=== PATIENT | female | born 1955 | race Caucasian/White ===

== ENCOUNTER → 2017-07-01 | Outpatient (CLI) | payer OTHER ==
--- NOTE | 2017-07-02 15:17 | MAMMOGRAPHY REPORT ---
BILATERAL DIGITAL SCREENING MAMMOGRAM TOMOSYNTHESIS WITH CAD: 07/01/2017 CLINICAL HISTORY: Routine screening. TECHNIQUE: Breast tomosynthesis in addition to standard 2D mammography was performed. Current study was also evaluated with a Computer Aided Detection (CAD) system. COMPARISON: Comparison is made to exams dated: 05/31/2016 mammogram, 02/23/2015 ultrasound, 02/23/2015 mammogram, 02/11/2015 mammogram - [facility], and 03/19/2011 mammogram. BREAST COMPOSITION: There are scattered areas of fibroglandular density in both breasts. FINDINGS: The parenchymal pattern is unchanged. No developing mass, architectural distortion or clus ter of suspicious microcalcifications is seen in either breast. IMPRESSION: ACR BI-RADS CATEGORY 2: BENIGN There is no mammographic evidence of malignancy. A 1 year screening mammogram is recommended. The pa tient will receive written notification of the results. Approximately 10% of breast cancers are not detected with mammography. A negative mammographic report should not delay biopsy if a clinically suggestive mass is present. Hina Pedroza M.D. ay/:07/01/2017 17:00:38 Delinquent Tax Collector: Pollo GARCIA(R)(Martha), [facility] letter sent: Normal 1/2 BI-RADS Code: ACR BI-RADS Category 2: Benign
== END | disposition home or self-care (01) ==
LOC: C.MAMM 11:12
PROVIDERS: ATTEND Internal Medicine
DX: Z12.31 Encounter for screening mammogram for malignant neoplasm of breast (principal)

== ENCOUNTER 2020-09-30 01:35 | Observation (INO) ==
--- NOTE | 2020-09-30 01:54 | Emergency Department Note ---
History of Present Illness General Chief Complaint: Chest Pain Stated Complaint: CHEST PAIN/NOT FEELING WELL Time Seen by Provider: 09/30/20 01:38 Source: patient, EMS, RN notes reviewed and old records reviewed Mode of arrival: EMS Limitations: no limitations History of Present Illness Provider Complaint: chest pain Onset (ago): hour(s) 1 Duration: now resolved Onset: during rest Pain Location: left chest Pain Radiation: back Severity: mild Current Pain Intensity: 0 Quality: + aching Relieved By: + movement Exacerbated By: + supine Context: no recent immobilization, no trauma/injury, no new medications and no history of DVT/PE Associated symptoms: + nausea; no diaphoresis and no fever Treatments prior to arrival: aspirin (324) This 65-year-old female who reports to the emergency department after waking up this morning in addition to the chest pain the patient is also complaining of nausea as well as dizziness. The patient reports she does not take any medications. She reports she had an abnormal EKG as reported by her PCP 2 years ago. She had an echocardiogram at that time which was found to be normal. She denies any fevers or chills. Home Medications Medication Instructions Recorded Confirmed Type No Known Home Medications 09/30/20 09/30/20 History lisinopril 5 mg PO DAILY #30 tab 09/30/20 10/03/20 Rx Allergies Allergy/AdvReac Type Severity Reaction Status Date / Time No Known Allergies Allergy Verified 09/30/20 02:03 Past Med/Surg History Medical History Back ache Breast density Chronic obstructive pulmonary disease Dizzy spells EKG, abnormal History of postmenopausal bleeding Migraine Postmenopausal atrophic vaginitis Reactive hypertension Tremor Tricuspid regurgitation Urinary tract infection Surgical History H/O oral surgery Previous back surgery L5-S1 herniated disc repair. early 80s S/P skin biopsy BCC Left cheek Family History Father Coronary heart disease Hyperlipidemia Hypertension Myocardial infarction Brother Diabetes Mother Myocardial infarction Denies family history of Ovarian cancer Prostate cancer Breast cancer Colorectal cancer Social History Smoking Status: Never smoker Second Hand Exposure: No; Hx Alcohol Use: No Hx Substance Use: No Preferred Language: Armenian Communication Ability: Effective Visual Impairment: No Limitations Hearing Ability: Normal Hogshead Opener Required: No Beliefs That Will Affect Care: None marital status: Current Living Situation: Spouse current occupational status: retired 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 Feels Safe at Home: Yes Childhood Exposure to Second-Hand Smoke: No Dental Care, Regularly: Yes Physical Activity Frequency: Daily Physical Activity Frequency Comment: walk, hikie, bike Seatbelt Use: always Sunscreen Use: Yes Assistive Devices: Glasses Review of Systems A total of 10 systems reviewed and were otherwise negative Physical Exam Vital Signs Vital Signs - 24 hr 09/30/20 01:43 09/30/20 01:44 09/30/20 02:10 Temperature 37.0 C Temperature Source Oral Pulse Rate 100 H 87 Pulse Rate [Apical] 86 Pulse Rate from SpO2 Sensor 86 Respiratory Rate 14 13 Respiratory Depth Normal Normal Blood Pressure 192/109 H 169/103 H Blood Pressure [Right Arm] 169/103 H Blood Pressure Mean 136 125 Blood Pressure Mean [Right Arm] 125 Pulse Oximetry 97 97 Oxygen Delivery Method Room Air Room Air Room Air Sepsis Recent Fever Within 48 Hours No Sepsis New/Unexplained Change in Mental Status N/A Sepsis Action Taken by Nursing No Action Required 09/30/20 02:30 09/30/20 03:00 09/30/20 03:30 Temperature Temperature Source Pulse Rate 95 H 92 H 86 Pulse Rate [Apical] Pulse Rate from SpO2 Sensor Respiratory Rate 21 17 14 Respiratory Depth Blood Pressure 186/106 H 188/90 H 155/99 H Blood Pressure [Right Arm] Blood Pressure Mean 132 122 117 Blood Pressure Mean [Right Arm] Pulse Oximetry 97 97 96 Oxygen Delivery Method Sepsis Recent Fever Within 48 Hours Sepsis New/Unexplained Change in Mental Status Sepsis Action Taken by Nursing VITAL SIGNS - Vital signs and nursing notes were reviewed. GENERAL - 65-year-old female appearing stated age who is in no acute distress. Extremely anxious. Communicates well with provider and answers questions appropriately. SKIN - Without rashes. HEAD - NC/AT. EYES - PERRL with EOMI bilaterally. Sclera anicteric. Palpebral conjunctiva pink and moist with no injection noted. EARS - No deformities of external structures noted on gross examination bilaterally. No pain elicited with palpation of the tragus bilaterally. External auditory canals without discharge or otorrhea. Tympanic membranes pearly lugo without retraction or bulging. No fluid or purulent material visualized behind the TM. Handle of malleus, umbo, cone of light, pars tensa/flaccid all easily visualized. NOSE - Midline and without cyanosis. No epistaxis or purulent drainage noted. Septum midline without deviation or septal hematoma noted. MOUTH/OROPHARYNX - Without perioral cyanosis. Buccal mucosa pink and moist and without leukoplakia. Tongue midline with equal elevation of palate bilaterally. No tonsillar hypertrophy, erythema, or exudates noted. dentition noted. NECK - Neck with FROM. Supple to palpation. lymphadenopathy noted. No nuchal rigidity. LUNGS - Chest wall symmetric without accessory muscle use, intercostals retractions, or central cyanosis. Normal vesicular breath sounds CTA B/L. No wheezes, rales, or rhonchi appreciated. CARDIAC - RRR with S1/S2. No murmur, rubs, or gallops appreciated. ABDOMEN - Abdominal contour without pulsations or visible masses. BS normoactive all four quadrants. No tenderness, palpable masses, hep atosplenomegaly, or ascites noted. EXTREMITIES - No clubbing or peripheral cyanosis. No pretibial edema present. +3/5 radial, posterior tibial, and dorsalis pedis pulses palpated throughout. +5/5 strength noted in UE/LE bilaterally. NEUROLOGIC - Cranial nerves II through XII grossly intact. Sensory intact to light touch throughout. Patellar reflexes +2/4. PSYCH - A&Ox3 and cooperates fully with examiner. Pt is very pleasant and interacts well with examiner. Course Administered Medications Discontinued Medications Acetaminophen (Acetaminophen 325 Mg Tab) 650 mg PO Q4H PRN PRN Reason: Pain or Fever Stop: 10/30/20 05:37 Last Admin: 09/30/20 13:25 Dose: 650 mg Documented by: [id number] Aspirin (Aspirin Chew 324 Mg) 324 mg PO NOW STA Stop: 09/30/20 03:57 Last Admin: 09/30/20 04:00 Dose: Not Given Documented by: [id number] Fentanyl Citrate (Fentanyl Citrate 100 Mcg/2 Ml Vial) Confirm Administered Dose 100 mcg .ROUTE .STK-MED ONE Stop: 09/30/20 16:22 Last Admin: 09/30/20 17:39 Dose: Not Given Documented by: [id number] Heparin Sodium (Porcine) (Heparin (Porcine) 1000 Unit/Ml 10 Ml (Powerhouse Mechanic Apprentice Use Only)) Confirm Administered Dose 10,000 units .ROUTE .[facility] ONE Stop: 09/30/20 16:22 Last Admin: 09/30/20 17:39 Dose: Not Given Documented by: [id number] Heparin Sodium/Sodium Chloride (Heparin In Nss Infusion 1000 Unit/500 Ml (2 U/Ml) Bag) Confirm Administered Dose 3,000 units IV .[facility] Stop: 09/30/20 16:22 Last Admin: 09/30/20 17:39 Dose: Not Given Documented by: [id number] Sodium Chloride (Nss 1000ml) 1,000 mls @ 150 mls/hr IV .Q6H40M [facility] Stop: 09/30/20 22:00 Last Admin: 09/30/20 17:42 Dose: Not Given Documented by: [id number] Lisinopril (Lisinopril 5 Mg Tab) 5 mg PO NOW ONE Stop: 09/30/20 03:37 Last Admin: 09/30/20 03:40 Dose: Not Given Documented by: [id number] Lisinopril (Lisinopril 5 Mg Tab) 5 mg PO [facility] Stop: 10/30/20 08:59 Last Admin: 10/01/20 08:29 Dose: Not Given Documented by: [id number] Admin: 09/30/20 10:16 Dose: Not Given Documented by: [id number] Midazolam HCl (Midazolam Hcl 1 Mg/Ml 2ml Vial) Confirm Administered Dose 2 mg .ROUTE .[facility] ONE Stop: 09/30/20 16:21 Last Admin: 09/30/20 17:38 Dose: Not Given Documented by: [id number] Nicardipine HCl (Nicardipine Hcl Inj 2.5 Mg/Ml 10 Ml Amp) Confirm Administered Dose 25 mg .ROUTE .[facility] ONE Stop: 09/30/20 16:22 Last Admin: 09/30/20 17:38 Dose: Not Given Documented by: [id number] Nitroglycerin (Nitroglycerin Sl 0.4 Mg/Tab Tab) 0.4 mg SL [facility] Stop: 09/30/20 03:57 Last Admin: 09/30/20 04:00 Dose: 0.4 mg Documented by: [id number] Nitroglycerin/Dextrose (Nitroglycerin/D5w 100mcg/Ml 20ml Syr) Confirm Administered Dose 2,000 mcg .ROUTE .[facility] ONE Stop: 09/30/20 16:22 Last Admin: 09/30/20 17:39 Dose: Not Given Documented by: [id number] Ondansetron HCl (Ondansetron Inj 2 Mg/Ml 2 Ml Vial) 4 mg IV Q6H PRN PRN Reason: Nausea Stop: 10/30/20 05:37 Last Admin: 09/30/20 13:25 Dose: 4 mg Documented by: [id number] Potassium Chloride (Potassium Chloride Crtab 20 Meq Tabcr) 40 meq PO NOW STA Stop: 09/30/20 02:16 Last Admin: 09/30/20 02:20 Dose: 40 meq Documented by: [id number] Potassium Chloride (Potassium Chloride Crtab 20 Meq Tabcr) 40 meq PO NOW STA Stop: 09/30/20 03:36 Last Admin: 09/30/20 03:40 Dose: 40 meq Documented by: [id number] Medical Decision Making Differential Diagnosis + fracture of rib, + pneumothorax, + stable angina, + unstable angina pectoris, + atypical chest pain, + st elevation myocardial infarction, + costochondritis, + chest pain, + biliary colic, + cardiac ischemia, + myocarditis, + pericarditis, + costochondritis, + pleurisy, + aortic dissection, + pulmonary embolism, + pneumonia, + musculoskeletal, + infections, + cholecystitis, + pancreatitis and + esophageal rupture Medical Records Attestation: I reviewed the patient's medical records. Home Medications Current Medication List: was personally reviewed by me Laboratory Data Attestation: I reviewed the patient's lab results. Result diagrams: 09/30/20 01:42 09/30/20 01:42 Labs: Lab Results 09/30/20 09/30/20 09/30/20 Range/Units 01:42 01:42 01:42 WBC 6.74 (4.8-10.8) K/uL RBC 4.41 (4.2-5.4) M/uL Hgb 13.2 (12.0-16.0) g/dL Hct 39.5 (37-47) % MCV 89.6 (80-100) fL MCH 29.9 (25-34) pg MCHC 33.4 (32-36) g/dL RDW Std Deviation 43.4 (36.4-46.3) fL RDW Coeff of Rosie 13.2 (11.5-14.5) % Plt Count 351 (130-400) K/uL MPV 10.3 (7.4-10.4) fL Immature Gran % (Auto) 0.1 % Neut % (Auto) 38.2 % Lymph % (Auto) 49.1 % [place] % (Auto) 10.5 % Eos % (Auto) 1.8 % Baso % (Auto) 0.3 % Neut # (Auto) 2.57 (1.4-6.5) K/uL Lymph # (Auto) 3.31 (1.2-3.4) K/uL [place] # (Auto) 0.71 H (0.11-0.59) K/uL Eos # (Auto) 0.12 (0-0.5) K/uL Baso # (Auto) 0.02 (0-0.2) K/uL Immature Gran # (Auto) 0.01 (0.00-0.02) K/uL PT 11.1 (9.0-12.0) Seconds INR 1.1 (0.9-1.1) APTT 28.2 (21.0-31.0) Seconds PTT Ratio 1.0 D-Dimer 310 (0-500) ug/L FEU Sodium 142 (136-145) mmol/L Potassium 3.2 L (3.5-5.1) mmol/L Chloride 111 H (98-107) mmol/L Carbon Dioxide 28 (21-32) mmol/L Anion Gap 3.0 (3-11) BUN 10 (7-18) mg/dl Creatinine 0.66 (0.6-1.2) mg/dl Est Cr Clr Drug Dosing 74.4 ml/min Est GFR ( Amer) 105.9 Est GFR (Non-Af Amer) 91.4 BUN/Creatinine Ratio 14.7 (10-20) Glucose 91 (70-99) mg/dl Calcium 8.8 (8.5-10.1) mg/dl Magnesium (1.8-2.4) mg/dl Total Bilirubin 0.5 (0.2-1) mg/dl AST 31 (15-37) U/L ALT 34 (12-78) U/L Alkaline Phosphatase 112 (45-117) U/L Total Creatine Kinase 106 (26-192) U/L CK-MB (CK-2) 2.0 (0.5-3.6) ng/ml CK/CKMB % Calc 1.9 (0-3.0) Troponin I < 0.015 (0-0.045) ng/ml NT-Pro-B Natriuret Pep (0-900) pg/ml Total Protein 7.7 (6.4-8.2) gm/dl Albumin 4.1 (3.4-5.0) gm/dl Globulin 3.6 (2.5-4.0) gm/dl Albumin/Globulin Ratio 1.1 (0.9-2) Lipase 86 (73-393) U/L COVID-19 Eval Order SARS-CoV-2, RNA, NAAT (NEGATIVE) 09/30/20 09/30/20 09/30/20 Range/Units 02:10 02:10 03:19 WBC (4.8-10.8) K/uL RBC (4.2-5.4) M/uL Hgb (12.0-16.0) g/dL Hct (37-47) % MCV (80-100) fL MCH (25-34) pg MCHC (32-36) g/dL RDW Std Deviation (36.4-46.3) fL RDW Coeff of Rosie (11.5-14.5) % Plt Count (130-400) K/uL MPV (7.4-10.4) fL Immature Gran % (Auto) % Neut % (Auto) % Lymph % (Auto) % [place] % (Auto) % Eos % (Auto) % Baso % (Auto) % Neut # (Auto) (1.4-6.5) K/uL Lymph # (Auto) (1.2-3.4) K/uL [place] # (Auto) (0.11-0.59) K/uL Eos # (Auto) (0-0.5) K/uL Baso # (Auto) (0-0.2) K/uL Immature Gran # (Auto) (0.00-0.02) K/uL PT (9.0-12.0) Seconds INR (0.9-1.1) APTT (21.0-31.0) Seconds PTT Ratio D-Dimer (0-500) ug/L FEU Sodium (136-145) mmol/L Potassium (3.5-5.1) mmol/L Chloride (98-107) mmol/L Carbon Dioxide (21-32) mmol/L Anion Gap (3-11) BUN (7-18) mg/dl Creatinine (0.6-1.2) mg/dl Est Cr Clr Drug Dosing ml/min Est GFR ( Amer) Est GFR (Non-Af Amer) BUN/Creatinine Ratio (10-20) Glucose (70-99) mg/dl Calcium (8.5-10.1) mg/dl Magnesium 1.9 (1.8-2.4) mg/dl Total Bilirubin (0.2-1) mg/dl AST (15-37) U/L ALT (12-78) U/L Alkaline Phosphatase (45-117) U/L Total Creatine Kinase (26-192) U/L CK-MB (CK-2) (0.5-3.6) ng/ml CK/CKMB % Calc (0-3.0) Troponin I 0.042 (0-0.045) ng/ml NT-Pro-B Natriuret Pep 93 (0-900) pg/ml Total Protein (6.4-8.2) gm/dl Albumin (3.4-5.0) gm/dl Globulin (2.5-4.0) gm/dl Albumin/Globulin Ratio (0.9-2) Lipase (73-393) U/L [facility], [facility], NAAT NEGATIVE (NEGATIVE) Imaging Data Chest x-ray: Attestation: I personally reviewed and interpreted this imaging study as follows: My impression: 1 view the chest was interpreted by me shows no evidence of pneumonia congestion or pneumothorax. ECG Data Attestation: I personally reviewed and interpreted this ECG as follows: Indication: chest pain Rate (beats per minute): 91 Rhythm: normal sinus Findings: + Q waves (Anterior) Comparison ECG Date: no prior available Additional Comments: Repeat EKG at 314 shows a normal sinus rhythm old anterior infarct no ST elevation or depression QTC is 459 ventricular rate is 88 it is unchanged from the previous EKG. MDM Narrative Patient was seen and evaluated as above in room A2. Review was performed of nursing notes and vital signs. I did review pertinent previous visits and patient history. After obtaining a thorough history and physical examination the above work up was performed. This 65-year-old female who presents to the emergency department complaining of chest pain. 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 The patient reports she had a echo test back in 2018. The patient has vague symptoms here tonight and reports that her symptoms started when she rolled over on her left side. She denies pain. Serial EKGs did not show any evidence of ischemia however due to the old anterior infarct I stressed the need for close follow-up with cardiology and really no strenuous activity until the follow-up. The patient's Covid test is negative. The patient's original troponin remained undetectable however repeat troponin showed an increase. Based on this along with the patient's hypertension I did discuss the case with the hospitalist service who did agree to meet the patient. In the meantime patient was given lisinopril here for her blood pressure. Her potassium was also repleted. An order was placed for continuous cardiac monitoring. The monitor shows a rate of 100 with Normal SInus rhythm. The patient was evaluated during a period of high volume and high acuity while the hospital was at overcapacity during the global COVID-19 pandemic, and that diagnosis was suspected/considered upon their initial presentation. Their evaluation, treatment and testing was consistent with current guidelines for patients who present with complaints or symptoms that may be related to COVID- 19. Impression & Plan Chest pain, Acute hypokalemia, Hypertension Discharge Plan Visit Data Chief Complaint: Chest Pain Stated Complaint: CHEST PAIN/NOT FEELING WELL ED Provider: Ravinder Adame Discharge Problem: Chest pain, Acute hypokalemia, Hypertension Patient Disposition: Admitted As Inpatient Condition: Good Discharge Instructions Interventions: ED Discharge Assessment Last Done: 09/30/20 05:14 Discharge Problem: Chest pain Qualifiers: Chest pain type: unspecified Qualified Code(s): R07.9 - Chest pain, unspecified Hypertension Qualifiers: Hypertension type: unspecified Qualified Code(s): I10 - Essential (primary) hypertension
[2020-09-30 02:00] LABS: Basophils # (auto) 0.02 K/uL (0-0.2); Basophils % (auto) 0.3 %; Eosinophils # (auto) 0.12 K/uL (0-0.5); Eosinophils % (auto) 1.8 %; Hematocrit (blood only) 39.5 % (37-47); Hemoglobin 13.2 g/dL (12.0-16.0); Immature Granulocytes # (auto) 0.01 K/uL (0.00-0.02); Immature Granulocytes % (auto) 0.1 %; Lymphocytes # (auto) 3.31 K/uL (1.2-3.4); Lymphocytes % (auto) 49.1 %; Mean Corpuscular Hemoglobin 29.9 pg (25-34); Mean Corpuscular Hgb Conc 33.4 g/dL (32-36); Mean Corpuscular Volume 89.6 fL (80-100); Mean Platelet Volume 10.3 fL (7.4-10.4); Monocytes # (auto) 0.71 K/uL (0.11-0.59); Monocytes % (auto) 10.5 %; Neutrophils # (auto) 2.57 K/uL (1.4-6.5); Neutrophils % (auto) 38.2 %; Platelet Count 351 K/uL (130-400); RDW Coefficient of Variation 13.2 % (11.5-14.5); RDW Standard Deviation 43.4 fL (36.4-46.3); Red Blood Count 4.41 M/uL (4.2-5.4); White Blood Count 6.74 K/uL (4.8-10.8)
[2020-09-30 02:09] LABS: Alanine Aminotransferase 34 U/L (12-78); Albumin Level 4.1 gm/dl (3.4-5.0); Aspartate Aminotransferase 31 U/L (15-37); BUN Creatinine Ratio 14.7 (10-20); Blood Urea Nitrogen 10 mg/dl (7-18); Calcium 8.8 mg/dl (8.5-10.1); Carbon Dioxide 28 mmol/L (21-32); Chloride 111 mmol/L (98-107); Creatinine Clr Calc Pharmacy 74.4 ml/min; Est GFR (African American) 105.9; Est GFR (Non-African American) 91.4; Glucose 91 mg/dl (70-99); Lipase 86 U/L (73-393); Potassium 3.2 mmol/L (3.5-5.1); Sodium 142 mmol/L (136-145)
[2020-09-30 02:12] LABS: D Dimer 310 ug/L FEU (0-500); INR 1.1 (0.9-1.1); Partial Thromboplastin Time 28.2 Seconds (21.0-31.0); Prothrombin Time 11.1 Seconds (9.0-12.0)
[2020-09-30 02:14] LABS: Albumin Globulin Ratio 1.1 (0.9-2); Alkaline Phosphatase 112 U/L (45-117); Bilirubin,Total 0.5 mg/dl (0.2-1); Creatine Kinase 106 U/L (26-192); Globulin 3.6 gm/dl (2.5-4.0); Total Protein 7.7 gm/dl (6.4-8.2); Troponin I < 0.015 ng/ml (0-0.045)
[2020-09-30] MEDS ORDERED: POTASSIUM CHLORIDE CRTAB 20 MEQ TABCR PO STA ×2 (02:15→03:35)
[2020-09-30] MEDS ORDERED: lisinopril 5 MG TAB PO ONE (03:36)
[2020-09-30 03:48] LABS: Troponin I 0.042 ng/ml (0-0.045)
[2020-09-30] MEDS ORDERED: ASPIRIN CHEW 324 MG PO STA (03:56)
[2020-09-30] MEDS ORDERED: NITROGLYCERIN SL 0.4 MG/TAB TAB SL STA (03:56)
[2020-09-30 04:08] LABS: Magnesium 1.9 mg/dl (1.8-2.4)
--- NOTE | 2020-09-30 04:52 | History & Physical Report ---
Date of Service September 30, 2020 Assessment & Plan (1) Chest pain: Mrs. Barnett is an otherwise healthy 65 yo woman who presented to the ED for evaluation of L sided chest pain that began 24 hours prior to arrival, admitted for ACS rule out. - HEART score 3, patient is low risk - pain was reproducible on exam, suggestive of MSK etiology; not improved with nitroglycerin - it seems unlikely symptoms are consistent with unstable angina, as the discomfort did not increase in intensity with physical exertion today while cross country skiing - however, troponin did go from undetectable to 0.042 within 2 hour period - it is possible elevation in trop over 2 hr period is related to hypertensive emergency (systolic BP > 180) - ASA 324mg given in ED - will trend trops and obtain fasting lipid panel and HbA1c - echo ordered - hall monitor (2) Acute hypokalemia: - K 3.2 on admission - mag normal at 1.9 - 80meq of oral KCl ordered in ED - repeat BMP - given recent salt load, low K and elevated BP, we will order plasma renin and aldosterone levels (3) Hypertension: - BP as high as 190/109 in ED - "reactive hypertension" listed on patient's problem list, however most recent note from PCP in 07/2020 indicates no pharmacotherapy - increase in 2nd troponin level could be suggestive of end organ damage (hypertensive emergency) (4) Tricuspid regurgitation: - history of - per patient: discovered on 2017 echo (cannot locate records) Dispo: Med/Surg with tele Diet: NPO (in the event of potential cath, al beit unlikely) DVT ppx: SCDs Code: Full History of Present Illness Primary Care Provider: Lorna Benjamin MD Mrs. Barnett is a 65 yo otherwise healthy woman who presented to the emergency department for evaluation of left sided chest discomfort. She first noticed the discomfort on the evening of 09/28/20 while laying in bed; it happened to come on when she rolled onto her left side. It seemed to dissipate without any medication or intervention but never totally resolved. 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 The discomfort was present while exerting herself, however it was not any more severe. She was not breathing any heavier than usual, nor did she have any associated nausea or vo miting. When laying in bed on the evening of 09/29/20, she again became more aware of the discomfort when rolling onto her left side. When asked if there was any associated radiation fo the discomfort, she replied, "well my left arm also felt funny." She denies recollection of doing any exercise that resulted in a muscle pull or injury preceding the onset of the discomfort. She does admit to occasional heartburn sensations after eating marinara sauce, but takes no medication for this issue. She says the discomfort she feels today is different from her typical heartburn. She does report a recent increase in salt intake - she had salmon for dinner on 09/28 and had soup with bullion cubes on 09/29. She is a lifetime non-smoker. Her cholesterol was last checked in 06/2019 at which time total was 224, LDL 114, HDL 92, ratio 2, TG 91. She had her first screening EKG at age 63 (2017) - the interpretation suggested an anterior infarct. This came as a surprise to Mrs. Barnett - an echo was ordered afterwards and she reports it was normal expect for a "small valvular abnormality." She takes no medications. Family HX: Father of an ME before the age of 65. Mother of a ME at the age of 89. In the ED her BP did reach a high of 192/109. She was administered Aspirin 324mg, and given 1 sublingual nitroglycerin. The nitro did not improve the chest discomfort. Lisinopril 5mg was ordered, although it was never administered because her BP reduced on its own. Her CBC was normal. K was low at 3.2. Mag at 1.9. Cr normal. Coags normal. Pro BNP 93. Lipase 86. Initial troponin was u ndetectable. CK-MB normal at 2.0. Troponin was repeated two hours later increased to 0.042. EKG showed normal sinus rhythm at [address] segment changes, new LBBB, or repolarization abnormalities. Allergies Allergy/AdvReac Type Severity Reaction Status Date / Time No Known Allergies Allergy Verified 09/30/20 02:03 Home Medications Medication Instructions Recorded Confirmed Type No Known Home Medications 09/30/20 09/30/20 History lisinopril 5 mg PO DAILY #30 tab 09/30/20 Rx Past Med/Surg History Medical History Back ache Breast density Chronic obstructive pulmonary disease Dizzy spells EKG, abnormal History of postmenopausal bleeding Migraine Postmenopausal atrophic vaginitis Reactive hypertension Tremor Tricuspid regurgitation Urinary tract infection Surgical History H/O oral surgery Previous back surgery L5-S1 herniated disc repair. early 80s S/P skin biopsy BCC Left cheek Family History Father Coronary heart disease Hyperlipidemia Hypertension Myocardial infarction Brother Diabetes Mother Myocardial infarction Denies family history of Ovarian cancer Prostate cancer Breast cancer Colorectal cancer Social History Smoking Status: Never smoker Second Hand Exposure: No; Hx Alcohol Use: No Hx Substance Use: No Preferred Language: Bengali Communication Ability: Effective Visual Impairment: No Limitations Hearing Ability: Normal Broke Handler Required: No Beliefs That Will Affect Care: None marital status: Current Living Situation: Spouse current occupational status: retired 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 Feels Safe at Home: Yes Childhood Exposure to Second-Hand Smoke: No Dental Care, Regularly: Yes Physical Activity Frequency: Daily Physical Activity Frequency Comment: walk, hikie, bike Seatbelt Use: always Sunscreen Use: Yes Assistive Devices: Glasses Review of Systems Cardiovascular: + chest pain and + radiating jaw, neck or arm pain; no dyspnea on exertion Physical Exam Constitutional: WD/WN, vitals as above cooperative; no acute distress Eyes: + anicteric sclerae ENMT: external ear and nose normal, oropharynx normal Neck: normal visual inspection and trachea midline Respiratory: normal respiratory effort, lungs clear to auscultation Auscultation: no crackles, no rales and no wheezes Cardiovascular: RRR, no murmur, no edema Heart Sounds: normal S1 and normal S2 Extremities: no pedal edema Chest (Breasts): Additional Comments: + chest pain reproducible Gastrointestinal (Abdomen): normal bowel sounds, soft, nontender, no hepatosplenomegaly Skin: no rashes, warm and dry Psychiatric: A+Ox3, euthymic affect Results & Data Results & Data ([facility]) Vital Signs (Past 12 Hours) Vital Signs Temp Pulse Pulse Resp BP BP Pulse Ox 01/22/21 04:30 83 14 160/93 H 96 09/30/20 04:00 91 H 14 178/104 H 96 09/30/20 03:30 86 14 155/99 H 96 09/30/20 03:00 92 H 17 188/90 H 97 09/30/20 02:30 95 H 21 186/106 H 97 09/30/20 02:10 87 86 13 169/103 H 169/103 H 97 09/30/20 01:44 37.0 C 100 H 14 192/109 H 97 Supervising Physician Co-Signing Physician Notes Attending addendum: I have physically seen this patient, have supervised the medical residents activities, and agree with the H&P unless as otherwise noted. Assessment and Plan: Chest pain/hypertension/tricuspid regurgitation/hypokalemia- The patient will be admitted to telemetry for serial cardiac enzymes, serial EKG's, cardiac rhythm monitoring and a 2-D echocardiogram with Dopplers. Patient did have significant salt load the past 2 evenings, and we did discuss dietary adjustments. Potassium 3.2 upon admission, has received 80 mEq KCl at orally from the ED. Continue lisinopril. Has a history of reactive hypertension, however, if blood pressure continues to remain elevated upon admission, will add additional medications at that time Repeat BMP in the a.m. Check a renin and aldosterone level in the a.m. Check a fasting lipid panel and hemoglobin A1c Remaining orders and notations as noted Resident Activity Tracking Resident Involvement: Resident Care Provided Care Provided: [facility] (1) Chest pain Chest pain type: unspecified Qualified Code(s): R07.9 - Chest pain, unspecified (2) Hypertension Hypertension type: unspecified Qualified Code(s): I10 - Essential (primary) hypertension
[2020-09-30] MEDS ORDERED: ACETAMINOPHEN 325 MG TAB PO PRN (05:38)
[2020-09-30] MEDS ORDERED: POLYETHYLENE (MIRALAX) 17 GM PACK PO PRN (05:38)
[2020-09-30] MEDS ORDERED: ONDANSETRON INJ 2 MG/ML 2 ML VIAL IV PRN (05:38)
--- NOTE | 2020-09-30 06:56 | XRay Report ---
XR chest 1V portable CLINICAL HISTORY: Atypical chest pain COMPARISON STUDY: No previous studies for comparison. FINDINGS: The cardiac and mediastinal contours are normal. There is no evidence of focal pulmonary co nsolidation. There is no evidence of failure. No pleural effusions are visualized.[There is a 3 mm ca lcified granuloma the left lung base. IMPRESSION: No active disease in the chest. ACT 112: Negative or not required by law. Electronically signed by: Donato Elder M.D. 09/30/2020 6:55 AM
[2020-09-30 07:12] LABS: Chol HDL Ratio 2; Cholesterol 225 mg/dl (0-200); HDL Cholesterol 98 mg/dl; LDL Cholesterol Calculated 119 mg/dl; Triglycerides 40 mg/dl (0-150); VLDL Cholesterol 8 mg/dl
--- NOTE | 2020-09-30 08:28 | Hospitalist Progress Note ---
Date of Service September 30, 2020 Assessment & Plan (1) Chest pain: Note: patient was originally planned to be discharged 09/30/20 and discharge order had been ordered and a discharge summary had been signed/started. The discharge order was later canceled, so this progress note will be submitted for the date of service of 09/30/20. Mrs. Barnett is a 65 y/o F w/ hx of BPPV and hx of abnormal ecg (but normal echo) 2 yrs ago who presented for evaluation of L sided chest pain x 2 days admitted for ACS rule out. chest pain - HEART score 3 per ED/admission team, patient is low risk - per admission team, pain was reproducible on exam, suggestive of MSK etiology; not improved with nitroglycerin - ASA 324mg given by EMS - echo wnl - ecg some anterior lead q waves and nonspecific ST depressions - symptoms atypical for angina, though patient did endorse some worsening w/ activity (additional info obtained per cardiology eval, patient is poor historian) and vague L arm "funny sensation" (described as numbness to me). - however, troponin did go from undetectable to 0.042 within 2 hour period. further elevation to 0.167. given patient's additionally provided hx obtained in HPI during morning evaluation, considered functional testing - preferred stress echo, but given elevated trop, nuclear stress test better option. - consulted cardiology who evaluated patient and agreed w/ further testing - between nuc test and cath, opted for cath after discussion of risks/benefi ts w/ patient - it is possible elevation in trop over 2 hr period is related to elevated BPs hypokalemia - K 3.2 on admission - mag normal at 1.9 - 80meq of oral KCl ordered in ED - repeat BMP - given recent salt load, low K and elevated BP, we will order plasma renin and aldosterone levels HTN - BP as high as 190/109 in ED - "reactive hypertension" listed on patient's problem list, however most recent note from PCP in 07/2020 indicates no pharmacotherapy - increase in 2nd troponin level could be suggestive of end organ damage (hypertensive emergency) tricuspid regurgitation - history of - per patient: discovered on 2017 echo (cannot locate records) Dispo: Med/Surg with tele. plan was dispo 09/30/20, but patient stayed after cath recovery Diet: NPO prior to cath, resumed normal diet after DVT ppx: SCDs Code: Full (2) Acute hypokalemia: (3) Hypertension: (4) Tricuspid regurgitation: Admission and Anticipated Discharge Date Admission Date: September 30, 2020 Supervising Physician Co-Signing Physician Notes I personally examined the patient and verified all silva points of history and exam, discussed case, and agree with decision making with Dr Deutsch. for [facility] --> later found to be clean vitals noted nad heent nc at mmm breathing unlabored no accessory muscles good effort skin no pallor or icterus chest pain and elevated troponin - concerning - C done - clear -- so hypertensive emergency type pathology most likely at play otherwise as above Subjective Additional hx obtained. The patient felt something all day (L chest felt full intermittently for 2 days prior 4/10 pressure, no hx similar in past). She was in bed watching tvm rolled to L side, felt palpitations, lopez, dizziness and the discomfort. L arm felt funny (mild numb) (but unsure if from weird positioning or held phone). She felt pressure 5/10 after turned to left side. She's worried because of the combination of sxs (sensation of near syncopal (things moving, but not like her vertigo), headache, fluttering. Not on bp meds at home. hx intermittent fluttering sensation for years hx bppv, usually on r side. Occasional migraines. No hx mi or stroke Reports being told of abnormal ecg 2 yrs ago, but had normal echo. No hx treadmill test, but believess she can tolerate. v x1 this am after pills and migraine No hx of tobacco use. Review of Systems Review of Systems: Constitutional: Denies fever, chills Eyes: Denies blurry vision, vision changes ENT: Denies sore throat, sinus pain Cardiovascular: See HPI Respiratory: Denies shortness of breath Gastrointestinal: Denies abdominal pain, constipation, diarrhea Genitourinary: Denies urinary symptoms including dysuria Musculoskeletal: Denies weakness, muscle aches/pain, joint aches/pain Neurological: See HPI. Physical Exam Physical Exam: General: Grossly A&O. NAD. Cooperative. HEENT: Atraumatic, normocephalic. EOMI Pulm: CTAB. -wheezes, -rales, -rhonchi. No respiratory distress. Cardiac: RRR, -mrg. Abdominal: Nontender, nondistended, soft. Back: no back ttp Results & Data Results & Data ([facility]) Vital Signs (Past 12 Hours) Vital Signs Temp Pulse Pulse Pulse Resp BP BP 09/30/20 07:33 36.6 C 75 18 156/87 H 09/30/20 06:06 82 09/30/20 05:44 36.8 C 88 20 148/88 H 09/30/20 05:00 79 16 138/97 09/30/20 04:30 83 14 160/93 H 09/30/20 04:00 91 H 14 178/104 H 09/30/20 03:30 86 14 155/99 H 09/30/20 03:00 92 H 17 188/90 H 09/30/20 02:30 95 H 21 186/106 H 09/30/20 02:10 87 86 13 169/103 H 169/103 H 09/30/20 01:44 37.0 C 100 H 14 192/109 H Pulse Ox 09/30/20 07:33 96 09/30/20 06:06 09/30/20 05:44 95 09/30/20 05:00 95 09/30/20 04:30 96 09/30/20 04:00 96 09/30/20 03:30 96 09/30/20 03:00 97 09/30/20 02:30 97 09/30/20 02:10 97 09/30/20 01:44 97 Resident Activity Tracking Resident Involvement: Resident Care Provided Care Provided: Adult Hospital Medicine (1) Chest pain Chest pain type: unspecified Qualified Code(s): R07.9 - Chest pain, unspecified (2) Hypertension Hypertension type: unspecified Qualified Code(s): I10 - Essential (primary) hypertension
[2020-09-30 08:32] LABS: Estimated Average Glucose 111 mg/dl; Hemoglobin A1C 5.5 % (4.5-5.6)
[2020-09-30] MEDS: lisinopril 5 MG TAB PO SCH (10:16)
--- NOTE | 2020-09-30 12:06 | XCELERA ---
[id number]
--- NOTE | 2020-09-30 16:18 | Pre Anesthesia Assessment ---
Date of Service September 30, 2020 Pre Sedation Assessment Vital Signs Temp Pulse Pulse Pulse Resp BP BP 09/30/20 15:07 36.8 C 74 18 163/81 H 09/30/20 13:30 90 151/86 H 09/30/20 11:10 36.7 C 93 H 18 174/90 H 09/30/20 07:33 36.6 C 75 18 156/87 H 09/30/20 07:30 73 09/30/20 06:06 82 09/30/20 05:44 36.8 C 88 20 148/88 H 09/30/20 05:00 79 16 138/97 09/30/20 04:30 83 14 160/93 H 09/30/20 04:00 91 H 14 178/104 H 09/30/20 03:30 86 14 155/99 H 09/30/20 03:00 92 H 17 188/90 H 09/30/20 02:30 95 H 21 186/106 H 09/30/20 02:10 87 86 13 169/103 H 169/103 H 09/30/20 01:44 37.0 C 100 H 14 192/109 H Pulse Ox 09/30/20 15:07 96 09/30/20 13:30 09/30/20 11:10 95 09/30/20 07:33 96 09/30/20 07:30 09/30/20 06:06 09/30/20 05:44 95 09/30/20 05:00 95 09/30/20 04:30 96 09/30/20 04:00 96 09/30/20 03:30 96 09/30/20 03:00 97 09/30/20 02:30 97 09/30/20 02:10 97 09/30/20 01:44 97 Cardiovascular RRR, no murmur, no edema Respiratory normal respiratory effort, lungs clear to auscultation Pre-Sedation Airway Assessment Smoking Status: Never smoker Mallampati Class: III ASA: ASA3 NPO Status Date of Last Intake of Fluids: 09/30/20 Time of Last Intake of Fluids: 06:00 Date of Last Intake of Solid Food: 09/30/20 Time of Last Intake of Solid Foods: 15:00 Last Intake of Solids Comment: sips Procedure Planning Contraindications for Sedation: none Current Medications Reviewed: Yes Notes The planned sedation has been discussed with the patient. Informed Consent was obtained. I have identified the patient, determined the appropriateness of sedation and have assessed the patient immediately prior to the procedure. All medicine(s) and interventions are by my order.
[2020-09-30] MEDS ORDERED: MIDAZOLAM HCL 1 MG/ML 2ML VIAL ONE (16:20)
[2020-09-30] MEDS ORDERED: HEPARIN (PORCINE) 1000 UNIT/ML 10 ML (CATH LAB USE ONLY) ONE (16:21)
[2020-09-30] MEDS ORDERED: NITROGLYCERIN/D5W 100MCG/ML 20ML SYR ONE (16:21)
[2020-09-30] MEDS ORDERED: fentaNYL citrate 100 MCG/2 ML VIAL ONE (16:21)
[2020-09-30] MEDS ORDERED: niCARdipine HCL INJ 2.5 MG/ML 10 ML AMP ONE (16:21)
--- NOTE | 2020-09-30 16:29 | Cardiology Consultation ---
Date of Consultation September 30, 2020 Assessment & Plan (1) Chest pain: (2) Elevated troponin: (3) Hypertension: ASSESSMENT/PLAN: 1. Chest pain: Cannot exclude angina. She has had a progression of symptoms over the past several days to rest symptoms overnight. Troponin was initially undetectable but has increased, but not diagnostic of myocardial infarction. Although hypertensive urgency/emergency could cause chest pain and elevated troponin, her blood pressure has been much lower at home while experiencing chest discomfort over the past few days. Recommend ischemic evaluation. We discussed options such as cardiac catheterization versus myocardial perfusion study. After a thoughtful discussion, she prefers to undergo cardiac catheterization. Risks and benefits were discussed with her in detail. She has received aspirin. 2. Elevated troponin: Discussion as above. She does not have many risk factors for CAD, but symptoms are somewhat concerning and with objective data such as nonspecific ST depression on ECG with elevated troponin, ischemic heart disease is a possibility. Cardiac catheterization as above. 3. Hypertension: She apparently has refused her lisinopril this morning according to nursing documentation on [facility]. Blood pressure has been elevated. Would recommend treatment as appropriate. 4. Disposition: Patient care discussed with Dr. Tapia, primary hospitalist service. Will proceed with cardiac catheterization today to evaluate for sig nificant CAD. Highly complex medical issues. Thank you for allowing me to participate in the care of your patient. Please call for any other questions or concerns. Sincerely, Gera Saez M.D. History of Present Illness Reason for Consultation: Chest pain and elevated troponin Requesting Physician: Mert Tapia DO Attending Physician: Mert Tapia DO History of Present Illness Mrs. Barnett is a pleasant 65-year-old female with a history significant for reactive hypertension. She was admitted on 09/30/2020 with chest discomfort. Over the past several days, she has noted intermittent chest discomfort described as a left lower chest pressure while working around the house. The symptoms were short-lived and she cannot recall the exact time span but they would spontaneously resolve. Yesterday, she hiked at [employer] for approximately 2 miles. While walking, she had intermittent left-sided chest pressure but no shortness of breath, radiation, or diaphoresis. She was able to complete her hike. Then last night while laying in bed, she developed a pounding in her chest as well as a headache. Her left arm felt funny and she noted pressure in her left lower chest. When she laid on her left side palpitations worsened. She laid on her back and then felt dizzy but has an issue with benign positional vertigo. Her chest discomfort occurred at approximately midnight. She checked her blood pressure and her systolic blood pressure was in the 150s. She states over the past few days her systolic blood pressure has been mostly 90s to 120s. In the emergency department, her blood pressure was quite elevated at times, up to 192/109 mmHg. Her blood pressure did improve but she has been mostly hypertensive throughout her hospital stay, at times only mildly. She does not recall any return of her chest discomfort. She remains chest pain-free at this time. Her initial troponin was undetectable but then increased to 0.042 and then 0 .162. An echo demonstrated hyperdynamic LV systolic function but normal wall motion. Stress test was ordered however she was hypertensive, nauseated, and had elevated troponins and therefore deferred. She denies melena, hematochezia, hematuria, or other bleeding. Lisinopril is listed as a home medication but she states that she is not prescribed any antihypertensive agents at home. She denies a history of significant dyslipidemia, with an HDL of 98. She denies diabetes. Review of systems: As above. Review of systems otherwise negative/unremarkable. Family history: Father had CAD diagnosed in his 60s. Mother at the age of 89 with CAD diagnosed in her late 60s to the 70s. Social history: She denies tobacco, alcohol, or drug abuse. She is and lives at home with her . She has a son in [place] and a daughter in [place]. Grandchildren. 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 She is unaccompanied. Allergies Allergy/AdvReac Type Severity Reaction Status Date / Time No Known Allergies Allergy Verified 09/30/20 02:03 Home Medications Medication Instructions Recorded Confirmed Type No Known Home Medications 09/30/20 09/30/20 History lisinopril 5 mg PO DAILY #30 tab 09/30/20 Rx Patient History Medical History Back ache Breast density Chronic obstructive pulmonary disease Dizzy spells EKG, abnormal History of postmenopausal bleeding Migraine Postmenopausal atrophic vaginitis Reactive hypertension Tremor Tricuspid regurgitation Urinary tract infection Surgical History H/O oral surgery Previous back surgery L5-S1 herniated disc repair. early 80s S/P skin biopsy BCC Left cheek Family History Father Coronary heart disease Hyperlipidemia Hypertension Myocardial infarction Brother Diabetes Mother Myocardial infarction Denies family history of Ovarian cancer Prostate cancer Breast cancer Colorectal cancer Social History Smoking Status: Never smoker Second Hand Exposure: No; Hx Alcohol Use: No Hx Substance Use: No Preferred Language: Cambodian Communication Ability: Effective Visual Impairment: No Limitations Hearing Ability: Normal Child Psychologist Required: No Beliefs That Will Affect Care: None marital status: Current Living Situation: Spouse current occupational status: retired 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 Alert and oriented. HEENT: Anicteric sclera. Neck: No JVD. No bruits. Normal carotid upstrokes bilaterally. Cardiac: PMI was nondisplaced. No ventricular heave. Regular rate and rhythm. Normal S1-S2. No murmurs, rubs, or gallops. Pulmonary: Clear to auscultation bilaterally without wheezes, rales, or rhonchi. Abdomen: Soft, nontender, nondistended, with normoactive bowel sounds. No bruits noted. Extremities: 2+ radial pulses bilaterally. 2+ posterior tibialis pulses bilaterally. No edema or cyanosis. No palpable cords. Psychiatric: Affect appears appropriate. Results & Data ([facility]) Vital Signs (Past 12 Hours) Vital Signs Temp Pulse Pulse Pulse Resp BP BP 09/30/20 15:07 36.8 C 74 18 163/81 H 09/30/20 13:30 90 151/86 H 09/30/20 11:10 36.7 C 93 H 18 174/90 H 09/30/20 07:33 36.6 C 75 18 156/87 H 09/30/20 07:30 73 09/30/20 06:06 82 09/30/20 05:44 36.8 C 88 20 148/88 H 09/30/20 05:00 79 16 138/97 09/30/20 04:30 83 14 160/93 H Pulse Ox 09/30/20 15:07 96 09/30/20 13:30 09/30/20 11:10 95 09/30/20 07:33 96 09/30/20 07:30 09/30/20 06:06 09/30/20 05:44 95 09/30/20 05:00 95 09/30/20 04:30 96 Laboratory Results Laboratory Results - last 24 hr 09/30/20 09/30/20 09/30/20 01:42 01:42 01:42 WBC 6.74 RBC 4.41 Hgb 13.2 Hct 39.5 MCV 89.6 MCH 29.9 MCHC 33.4 RDW Std Deviation 43.4 RDW Coeff of Rosie 13.2 Plt Count 351 MPV 10.3 Immature Gran % (Auto) 0.1 Neut % (Auto) 38.2 Lymph % (Auto) 49.1 [place] % (Auto) 10.5 Eos % (Auto) 1.8 Baso % (Auto) 0.3 Neut # (Auto) 2.57 Lymph # (Auto) 3.31 [place] # (Auto) 0.71 H Eos # (Auto) 0.12 Baso # (Auto) 0.02 Immature Gran # (Auto) 0.01 PT 11.1 INR 1.1 APTT 28.2 PTT Ratio 1.0 D-Dimer 310 Sodium 142 Potassium 3.2 L Chloride 111 H Carbon Dioxide 28 Anion Gap 3.0 BUN 10 Creatinine 0.66 Est Cr Clr Drug Dosing 74.4 Est GFR ( Amer) 105.9 Est GFR (Non-Af Amer) 91.4 BUN/Creatinine Ratio 14.7 Glucose 91 Estimat Average Glucose Hemoglobin A1c Calcium 8.8 Magnesium Total Bilirubin 0.5 AST 31 ALT 34 Alkaline Phosphatase 112 Total Creatine Kinase 106 CK-MB (CK-2) 2.0 CK/CKMB % Calc 1.9 Troponin I < 0.015 NT-Pro-B Natriuret Pep Total Protein 7.7 Albumin 4.1 Globulin 3.6 Albumin/Globulin Ratio 1.1 Triglycerides Cholesterol LDL Cholesterol, Calc VLDL Cholesterol, Calc HDL Cholesterol Cholesterol/HDL Ratio Lipase 86 Renin Activity Aldosterone COVID-19 Eval Order SARS-CoV-2, RNA, NAAT 09/30/20 09/30/20 09/30/20 02:10 02:10 03:19 WBC RBC Hgb Hct MCV MCH MCHC RDW Std Deviation RDW Coeff of Rosie Plt Count MPV Immature Gran % (Auto) Neut % (Auto) Lymph % (Auto) [place] % (Auto) Eos % (Auto) Baso % (Auto) Neut # (Auto) Lymph # (Auto) [place] # (Auto) Eos # (Auto) Baso # (Auto) Immature Gran # (Auto) PT INR APTT PTT Ratio D-Dimer Sodium Potassium Chloride Carbon Dioxide Anion Gap BUN Creatinine Est Cr Clr Drug Dosing Est GFR ( Amer) Est GFR (Non-Af Amer) BUN/Creatinine Ratio Glucose Estimat Average Glucose Hemoglobin A1c Calcium Magnesium 1.9 Total Bilirubin AST ALT Alkaline Phosphatase Total Creatine Kinase CK-MB (CK-2) CK/CKMB % Calc Troponin I 0.042 NT-Pro-B Natriuret Pep 93 Total Protein Albumin Globulin Albumin/Globulin Ratio Triglycerides Cholesterol LDL Cholesterol, Calc VLDL Cholesterol, Calc HDL Cholesterol Cholesterol/HDL Ratio Lipase Renin Activity Aldosterone COVID-19 Eval [facility] SARS-CoV-2, RNA, NAAT NEGATIVE 09/30/20 09/30/20 09/30/20 06:22 06:22 06:22 WBC RBC Hgb Hct MCV MCH MCHC RDW Std Deviation RDW Coeff of Rosie Plt Count MPV Immature Gran % (Auto) Neut % (Auto) Lymph % (Auto) [place] % (Auto) Eos % (Auto) Baso % (Auto) Neut # (Auto) Lymph # (Auto) [place] # (Auto) Eos # (Auto) Baso # (Auto) Immature Gran # (Auto) PT INR APTT PTT Ratio D-Dimer Sodium Potassium Chloride Carbon Dioxide Anion Gap BUN Creatinine Est Cr Clr Drug Dosing Est GFR ( Amer) Est GFR (Non-Af Amer) BUN/Creatinine Ratio Glucose Estimat Average Glucose 111 Hemoglobin A1c 5.5 Calcium Magnesium Total Bilirubin AST ALT Alkaline Phosphatase Total Creatine Kinase CK-MB (CK-2) CK/CKMB % Calc Troponin I NT-Pro-B Natriuret Pep Total Protein Albumin Globulin Albumin/Globulin Ratio Triglycerides 40 Cholesterol 225 H LDL Cholesterol, Calc 119 VLDL Cholesterol, Calc 8 HDL Cholesterol 98 Cholesterol/HDL Ratio 2 Lipase Renin Activity Pending Aldosterone Pending COVID-19 Eval Order SARS-CoV-2, RNA, NAAT 09/30/20 10:12 WBC RBC Hgb Hct MCV MCH MCHC RDW Std Deviation RDW Coeff of Rosie Plt Count MPV Immature Gran % (Auto) Neut % (Auto) Lymph % (Auto) [place] % (Auto) Eos % (Auto) Baso % (Auto) Neut # (Auto) Lymph # (Auto) [place] # (Auto) Eos # (Auto) Baso # (Auto) Immature Gran # (Auto) PT INR APTT PTT Ratio D-Dimer Sodium Potassium Chloride Carbon Dioxide Anion Gap BUN Creatinine Est Cr Clr Drug Dosing Est GFR ( Amer) Est GFR (Non-Af Amer) BUN/Creatinine Ratio Glucose Estimat Average Glucose Hemoglobin A1c Calcium Magnesium Total Bilirubin AST ALT Alkaline Phosphatase Total Creatine Kinase CK-MB (CK-2) CK/CKMB % Calc Troponin I 0.162 H* NT-Pro-B Natriuret Pep Total Protein Albumin Globulin Albumin/Globulin Ratio Triglycerides Cholesterol LDL Cholesterol, Calc VLDL Cholesterol, Calc HDL Cholesterol Cholesterol/HDL Ratio Lipase Renin Activity Aldosterone COVID-19 Eval Order SARS-CoV-2, RNA, NAAT Diagnostic Findings Telemetry personally reviewed: Sinus rhythm. No arrhythmia. ECGs personally reviewed: ECG 09/30/2020 at 1:39 a.m.: Sinus rhythm 91 beats per minute. Nonspecific ST abnormality. ECG 09/30/2020 at 3:14 a.m.: Sinus rhythm 80 beats per minute. Nonspecific ST abnormality. Possible anterior infarct. Echo 09/30/2020: EF 70%. Normal wall motion. No significant valvular abnormalities. RVSP 33. Chest x-ray 09/30/2020: No acute abnormality per Radiology. Medications Administered Current Inpatient Medications Acetaminophen (Acetaminophen 325 Mg Tab) 650 mg PO Q4H PRN PRN Reason: Pain or Fever Stop: 10/30/20 05:37 Last Admin: 09/30/20 13:25 Dose: 650 mg Documented by: Lisinopril (Lisinopril 5 Mg Tab) 5 mg PO QAM [facility] Stop: 10/30/20 08:59 Last Admin: 09/30/20 10:16 Dose: Not Given Documented by: Ondansetron HCl (Ondansetron Inj 2 Mg/Ml 2 Ml Vial) 4 mg IV Q6H PRN PRN Reason: Nausea Stop: 10/30/20 05:37 Last Admin: 09/30/20 13:25 Dose: 4 mg Documented by: Polyethylene Glycol (Polyethylene (Miralax) 17 Gm Pack) 17 gm PO DAILY PRN PRN Reason: Constipation Stop: 10/30/20 05:37 PG Care Time/CCT Total # of Minutes Spent Total Time Spent with Patient: Total time spent is greater than 50% in c oordination of care (as documented) at patient's floor/unit and/or counseling patient: Coding Level of Care Code 44447 Office/Outpt Visit, New Diagnoses Chest pain R07.9 Chest pain type: unspecified Elevated troponin R77.8 Hypertension I10 Hypertension type: unspecified (1) Chest pain Chest pain type: unspecified Qualified Code(s): R07.9 - Chest pain, un specified (2) Hypertension Hypertension type: unspecified Qualified Code(s): I10 - Essential (primary) hypertension
--- NOTE | 2020-09-30 17:11 | Cardiac Catheterization ---
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 Cardiac Status Clinical evaluation leading to the procedure CAD Presenation: Unstable angina Anginal Classification: CCS IV Heart Failure: No Cardiogenic Shock within 24 Hours: No Cardiac Arrest within 24 Hours: No Imaging Studies Past 6 Months: Yes Stress Studies Past 6 Months: No Standard Exercise Test: No Stress Echocardiogram: No Stress Testing w/SPECT MPI: No Cardiac CTA: No Coronary Anatomy Dominant: Co-Dominant Left Ventricular Angiography EF (%): n/a Diagnostic Physicians Name: Man Saez MD Status: Elective Closure Device Percutaneous Entry Location: Radial Closure Device: Radial Band Recommendations: Management Recommendatons (as noted) Cardiac Cath Procedure Full Procedure Date September 30, 2020 Pre-Procedure Diagnosis Pre-Procedure Diagnosis: Angina (Chest pain with elevated troponin levels.) AUC Score AUC Score: 7 Post-Procedure Diagnosis Post-Procedure Diagnosis: Normal Coronary Arteries Procedure(s) Performed Procedure(s) Performed: Coronary Angiography and Left Heart Cath Gun Stock Maker Man Saez MD Outsole Cutter Machine(s) Pati Estimated Blood Loss Estimated Blood Loss: < 20 ml Medication(s) Medication(s): Fentanyl, Heparin, Lidocaine 1%, Nicardipine and Versed Summary of Findings Procedures: 1. Coronary angiography 2. Left heart catheterization 3. Moderate sedation Coronary angiography: 1. Left main coronary artery: No significant CAD. 2. Left anterior descending: Large caliber vessel that extends to the apex. Small diagonal. No significant CAD within the LAD system. 3. Circumflex: Codominant. Large caliber vessel. Very large OM1 with several branches. Small to medium caliber PDA and PL. No significant CAD within the circumflex system. 4. Right coronary artery: Codominant. Large caliber vessel. RCA, PL, and PDA without significant CAD. Left heart catheterization: 1. Left ventriculography was not performed. 2. No aortic stenosis. Peak to peak gradient across the aortic valve was 0. 3. LVEDP measured 0 mmHg. Moderate sedation: 1. Sedation start time: 4:42 PM 2. Sedation end time: 4:58 PM Impression: 1. No significant CAD. 2. Codominant system. 3. Low left-sided filling pressure. 4. No aortic stenosis. 5. Chest pain and elevated troponin may have been secondary to hypertensive urgency. Plan: 1. Optimize blood pressure control. Hemodynamics Rest Ao:: 109/63 Final Ao: 112/64 LV: 111/0 Recommendations Recommendations: Management Recommendatons (as noted) Specimens Specimens: None Radiation Exposure (mGy) 122 mGy. Fluoro time 1.5 min. Contrast (mls) 40 ml Procedural Complication(s) None Disposition PCU I attest to the content of the Intraoperative Record and any orders documented therein. Any exceptions are noted below. [facility] Card Cath Procedure Codes Cardiac Catheterization Procedure 1: Cardiovascular Cath Procedures: 80243 Coronaries and LHC (+/-LV) Moderate Sedation Procedure 1: Sedation/Anesthesia: 94436 Mod Sedation by the same physician;Init15 Min Child Age 5 & Up PG Care Time/CCT Total # of Minutes Spent Total Time Spent with Patient: Total time spent is greater than 50% in coordination of care (as documented) at patient's floor/unit and/or counseling patient:
[2020-09-30] MEDS ORDERED: SODIUM CHLORIDE 0.9% 1000ML 1,000 ML IV SCH (17:15)
--- NOTE | 2020-09-30 17:15 | Post Anesthesia Assessment ---
Date of Service September 30, 2020 Post Sedation Assessment Vital Signs Temp Pulse Pulse Pulse Resp BP BP 09/30/20 15:07 36.8 C 74 18 163/81 H 09/30/20 13:30 90 151/86 H 09/30/20 11:10 36.7 C 93 H 18 174/90 H 09/30/20 07:33 36.6 C 75 18 156/87 H 09/30/20 07:30 73 09/30/20 06:06 82 09/30/20 05:44 36.8 C 88 20 148/88 H 09/30/20 05:00 79 16 138/97 09/30/20 04:30 83 14 160/93 H 09/30/20 04:00 91 H 14 178/104 H 09/30/20 03:30 86 14 155/99 H 09/30/20 03:00 92 H 17 188/90 H 09/30/20 02:30 95 H 21 186/106 H 09/30/20 02:10 87 86 13 169/103 H 169/103 H 09/30/20 01:44 37.0 C 100 H 14 192/109 H Pulse Ox 09/30/20 15:07 96 09/30/20 13:30 09/30/20 11:10 95 09/30/20 07:33 96 09/30/20 07:30 09/30/20 06:06 09/30/20 05:44 95 09/30/20 05:00 95 09/30/20 04:30 96 09/30/20 04:00 96 09/30/20 03:30 96 09/30/20 03:00 97 09/30/20 02:30 97 09/30/20 02:10 97 09/30/20 01:44 97 Recovery Score Activity: Moves 4 extremities Respiration: Deep Breath/Cough Circulation: +/-20% PreAnes Value Consciousness: Fully Awake Oxygen Saturation: > 92% On Room Air Discharge Sedation Level of Care: Fast Track Phase II Post Sedation Plan On clinical assessment, the patient appears to have tolerated the sedation without complications. Patient is recovering as anticipated. Patient will continue to be monitored by nursing and may be discharged when sedation discharge criteria are met per below protocol. Upon Completions of procedure up to 15 minutes continue every 5 minute vital signs and the P.A.R. score; then discharge to a Phase I or Fast Track to Phase II per the following guidelines: * Discharge Patient to appropriate Phase II area if PAR is 8 or greater or return to pre- procedure baseline. The post - procedure orders will be as directed. * If PAR score is less than 8 or not return to pre-procedure baseline then patient will follow Phase I monitoring till PAR is reached for Phase II. The Phase I may be done in procedure room or may call to secure a Phase I area. * If naloxone or flumazenil are used for reversal, hold in Phase I for continued monitoring from when last reversal dose was given for a minimum of 60 minutes or longer pending the nurse and/or physician discretion of patient condition before discharge to Phase II. Please call the Sedation Physician to re-evaluate and complete post-note for discharge to Phase II area. Do NOT discharge from procedure sedation or Phase 1 until post- sedation evaluation note is complete by procedure /sedation MD Sedation Discharge Instructions to be given to the patient at discharge to home.
--- NOTE | 2020-09-30 17:53 | Discharge Summary ---
Date of Service September 30, 2020 Admission HPI Per Admitting Provider Mrs. Barnett is a 65 yo otherwise healthy woman who presented to the emergency department for evaluation of left sided chest discomfort. She first noticed the discomfort on the evening of 09/28/20 while laying in bed; it happened to come on when she rolled onto her left side. It seemed to dissipate without any medication or intervention but never totally resolved. 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 The discomfort was present while exerting herself, however it was not any more severe. She was not breathing any heavier than usual, nor did she have any associated nausea or v omiting. When laying in bed on the evening of 09/29/20, she again became more aware of the discomfort when rolling onto her left side. When asked if there was any associated radiation fo the discomfort, she replied, "well my left arm also felt funny." She denies recollection of doing any exercise that resulted in a muscle pull or injury preceding the onset of the discomfort. She does admit to occasional heartburn sensations after eating marinara sauce, but takes no medication for this issue. She says the discomfort she feels today is different from her typical heartburn. She does report a recent increase in salt intake - she had salmon for dinner on 09/28 and had soup with bullion cubes on 09/29. She is a lifetime non-smoker. Her cholesterol was last checked in 06/2019 at which time total was 224, LDL 114, HDL 92, ratio 2, TG 91. She had her first screening EKG at age 63 (2017) - the interpretation suggested an anterior infarct. This came as a surprise to Mrs. Barnett - an echo was ordered afterwards and she reports it was normal expect for a "small valvular abnormality." She takes no medications. Family HX: Father of an MA before the age of 65. Mother of a MA at the age of 89. In the ED her BP did reach a high of 192/109. She was administered Aspirin 324mg, and given 1 sublingual nitroglycerin. The nitro did not improve the chest discomfort. Lisinopril 5mg was ordered, although it was never administered because her BP reduced on its own. Her CBC was normal. K was low at 3.2. Mag at 1.9. Cr normal. Coags normal. Pro BNP 93. Lipase 86. Initial troponin was undetectable. CK-MB normal at 2.0. Troponin was repeated two hours later increased to 0.042. EKG showed normal sinus rhythm at [address] segment changes, new LBBB, or repolarization abnormalities. Admission Exam Per Admitting Provider Constitutional: WD/WN, vitals as above cooperative; no acute distress Eyes: + anicteric sclerae ENMT: external ear and nose normal, oropharynx normal Neck: normal visual inspection and trachea midline Respiratory: normal respiratory effort, lungs clear to auscultation Auscultation: no crackles, no rales and no wheezes Cardiovascular: RRR, no murmur, no edema Heart Sounds: normal S1 and normal S2 Extremities: no pedal edema Chest (Breasts): Additional Comments: + chest pain reproducible Gastrointestinal (Abdomen): normal bowel sounds, soft, nontender, no hepatosplenomegaly Skin: no rashes, warm and dry Psychiatric: A+Ox3, euthymic affect Principal Diagnosis chest pain, elevated troponin Discharge Exam General: Grossly A&O. NAD. Cooperative. HEENT: Atraumatic, normocephalic. Pulm: CTAB. -wheezes, -rales, -rhonchi. No respiratory distress. Cardiac: RRR, -mrg. Abdominal: Nontender, nondistended, soft. Discharge Data Allergies Allergy/AdvReac Type Severity Reaction Status Date / Time No Known Allergies Allergy Verified 09/30/20 02:03 Consultations 09/30/20 04:01 ED Decision to Admit Stat 09/30/20 15:48 Consult Cardiology Routine Procedures Performed Operation Date: 09/30/20 16:10 Actual Procedures p Cath, Left with Cors and Vent - Man Saez MD Ordered Studies 09/30/20 16:10 CL Cath Imgs for PACS use only Routine Hospital Course (1) Chest pain: Mrs. Barnett is a 65 y/o F w/ hx of BPPV and hx of abnormal ecg (but normal echo) 2 yrs ago who presented for evaluation of L sided chest pain x 2 days admitted for ACS rule out. chest pain, likely noncardiac Patient presented w/ 2 days of L chest pressure that was later clarified to be exertional, in the context of uptrending/elevated troponins, so further workup was performed. Cath was negative. Patient was discharged on lisinopril 5mg because there was not a good explanation for what caused the elevated troponin, other than elevated BPs (190 systolic in the ED). Therefore, patient is believed to have a reactive hypertension type picture. BP f/u in outpatient office. - HEART score 3 per ED/admission team, patient is low risk - per admission team, pain was reproducible on exam, suggestive of MSK etiology; not improved with nitroglycerin - ASA 324mg given by EMS - echo wnl - ecg some anterior lead q waves and nonspecific ST depressions - symptoms atypical for angina, though patient did endorse some worsening w/ activity (additional info obtained per cardiology eval, patient is poor historian) and vague L arm "funny sensation" (described as numbness to me). - however, troponin did go from undetectable to 0.042 within 2 hour period. further elevation to 0.167. given patient's additionally provided hx obtained in HPI during morning evaluation, considered functional testing - preferred stress echo, but given elevated trop, nuclear stress test better option. - consulted cardiology who evaluated patient and agreed w/ further testing - between nuc test and cath, opted for cath after discussion of risks/benefits w/ patient - it is possible elevation in trop over 2 hr period is related to elevated BPs hypokalemia - K 3.2 on admission - mag normal at 1.9 - 80meq of oral KCl ordered in ED - repeat BMP - given recent salt load, low K and elevated BP, we will order plasma renin and aldosterone levels HTN - BP as high as 190/109 in ED - "reactive hypertension" listed on patient's problem list, however most recent note from PCP in 07/2020 indicates no pharmacotherapy - increase in 2nd troponin level could be suggestive of end organ damage (hypertensive emergency) tricuspid regurgitation - history of - per patient: discovered on 2018 echo (cannot locate records) Code: Full (2) Acute hypokalemia: (3) Hypertension: (4) Tricuspid regurgitation: Total Time Total Time Spent Total Time Spent (In Minutes): <30 Discharge Plan Discharge Items Patient Disposition: Home - Self-Care Reason For Visit: CHEST PAIN Discharge Diagnosis: non cardiac chest pain Condition on Discharge: Good Activity: Per Instructions section Non-emergency contact: Primary Care Provider Call non-emergency contact if: you have any medication questions Follow-up/Referrals: BalLorna De La Cruz MD [Primary Care Provider] - (hospital follow up in 1-2 weeks. check bmp in 1 wk) Diet: Regular Addtl Attending Provider Instructions: You were admitted to [facility] on 09/30/20 for left chest pressure. Given your described history, and the rising troponin enzyme, and some ecg abnormalities, we pursued additional workup. The ultrasound of your heart was normal. We were planning to perform a treadmill stress test, but did not want to risk worsening a heart vessel blockage because your troponin enzyme was elevated. After consulting with the copyright manager, we presented the available options and you preferred to have a heart catheterization over a nuclear imaging study. The heart catheterization did not show any blockage in your coronary (heart) arteries. Therefore, your chest pain is likely from some other cause, such as musculoskeletal. Your blood pressure was elevated during this hospitalization; please take lisinopril 5 mg tab once a day. The reason we are starting this medicine is because your troponin was elevated and we think the most likely cause was from the elevated blood pressure (190 systolic in the ED). Your baseline blood pressure is ok, but you may have periodic elevations precipitated by stress. Hence, we'd like to start this medicine and have you check your blood pressures regularly including during times of stress. The prescription has been sent to [facility]. Follow up with your primary care doctor for refills and further management. I recommend obtaining a blood pressure cuff to check your home blood pressures. Please discuss with your primary care doctor about blood pressure goals (~<140/90, or slightly less such as <130/80, varies between different guidelines). Please continue your active/healthy lifestyle habits. You are doing a great! You may also want to try the DASH diet. Follow up with your primary care provider in 1-2 weeks. Recheck BMP (includes kidney function) in 1 week because you are starting a new medicine. If you develop any new or worsening symptoms including fever, chills, sweats, chest pain, chest pressure, difficulty breathing, uncontrolled nausea/vomiting, rash, wheezing, passing out or nearly passing out, bleeding, black/bloody bowel movements, or other new or concerning symptoms please call your primary care physician, or call 911 for re-evaluation in the emergency department if you are very concerned. Pending Studies at Discharge: No Stand-Alone Forms: [employer], Smoking Cessation Medications and DC Order Prescriptions: New lisinopril 5 mg tablet 5 mg PO DAILY Qty: 30 RF: 0 No Action No Known Home Medications RF: 0 Discharge Orders: Discharge Order (Routine); Ordered 10/01/20 Ordered By: Salvador Deutsch Admission Data Admit Date/Time: 09/30/20 04:36 Attending Provider: Mert Tapia Admit Provider: Concha Patel Primary Care Provider: Lorna Benjamin V. Other Providers: Stanley Momin ; Salvador Deutsch ; Man Saez Other Interventions: Discharge Summary Assessment (RN) Last Done: 10/01/20 10:22 Supervising Physician Co-Signing Physician Notes I personally examined the patient and verified all silva points of history and exam, discussed case, and agree with decision making with Dr Deutsch. feeling better [facility] noted vitals noted nad heent nc at mmm breathing unlabored no accessory muscles good effort skin no rashes no pallor or icterus CP/elevated troponin - ?blood pressure related vs spurious - but no CAD/ACS. safe for home. lisinopril. outpt f/u Resident Activity Tracking Resident Involvement: Resident Care Provided Care Provided: Adult Hospital Medicine
--- NOTE | 2020-09-30 18:45 | Billing Data ---
Date of Service September 30, 2020 Coding Level of Care Code 29375 OBS Care - Discharge
--- NOTE | 2020-10-01 03:27 | Billing Data ---
Date of Service October 01, 2020 Coding Level of Care Code 01075 OBS Care - Level 3
--- NOTE | 2020-10-01 07:12 | Electrocardiogram Report ---
Test Reason : Blood Pressure : / mmHG Vent. Rate : 091 BPM Atrial Rate : 091 BPM P-R Int : 140 ms QRS Dur : 082 ms QT Int : 378 ms P-R-T Axes : 071 074 061 degrees QTc Int : 464 ms Poor data quality, interpretation may be adversely affected Normal sinus rhythm Nonspecific ST abnormality Abnormal ECG No previous ECGs available Confirmed by Man Saez ([id number]) on 10/01/2020 7:12:09 AM Referred By: REFERRED SELF Confirmed By:Man Saez
--- NOTE | 2020-10-01 07:13 | Electrocardiogram Report ---
Test Reason : Blood Pressure : / mmHG Vent. Rate : 080 BPM Atrial Rate : 080 BPM P-R Int : 146 ms QRS Dur : 088 ms QT Int : 398 ms P-R-T Axes : 071 071 066 degrees QTc Int : 459 ms Normal sinus rhythm Anterior infarct , age undetermined Nonspecific ST abnormality Abnormal ECG When compared with ECG of 30-SEP-2020 01:39, No significant change was found Confirmed by Man Saez ([id number]) on 10/01/2020 7:13:24 AM Referred By: REFERRED SELF Confirmed By:Man Saez
--- NOTE | 2020-10-01 07:47 | Electrocardiogram Report ---
Test Reason : Blood Pressure : / mmHG Vent. Rate : 075 BPM Atrial Rate : 075 BPM P-R Int : 116 ms QRS Dur : 090 ms QT Int : 436 ms P-R-T Axes : 031 064 069 degrees QTc Int : 486 ms Normal sinus rhythm Nonspecific ST abnormality Prolonged QT When compared with ECG of 30-SEP-2020 03:14, No significant change was found Confirmed by Man Saez ([id number]) on 10/01/2020 7:47:26 AM Referred By: REFERRED SELF Confirmed By:Man Saez
--- NOTE | 2020-10-01 07:53 | Hospitalist Progress Note ---
Date of Service October 01, 2020 Assessment & Plan (1) Chest pain: plan is dispo this am. Note: patient was originally planned to be discharged 09/30/20 and discharge order had been ordered and a discharge summary had been signed/started. The discharge order was later canceled, so this progress note will be submitted for the date of service of 09/30/20. Mrs. Barnett is a 65 y/o F w/ hx of BPPV and hx of abnormal ecg (but normal echo) 2 yrs ago who presented for evaluation of L sided chest pain x 2 days admitted for ACS rule out. chest pain - HEART score 3 per ED/admission team, patient is low risk - per admission team, pain was reproducible on exam, suggestive of MSK etiology; not improved with nitroglycerin - ASA 324mg given by EMS - echo wnl - ecg some anterior lead q waves and nonspecific ST depressions - symptoms atypical for angina, though patient did endorse some worsening w/ activity (additional info obtained per cardiology eval, patient is poor historian) and vague L arm "funny sensation" (described as numbness to me). - however, troponin did go from undetectable to 0.042 within 2 hour period. further elevation to 0.167. given patient's additionally provided hx obtained in HPI during morning evaluation, considered functional testing - preferred stress echo, but given elevated trop, nuclear stress test better option. - consulted cardiology who evaluated patient and agreed w/ further testing - between nuc test and cath, opted for cath after discussion of risks/benefits w/ patient - it is possible elevation in trop over 2 hr period is related to elevated BPs hypokalemia - K 3.2 on admission - mag normal at 1.9 - 80meq of oral KCl ordered in ED - repeat BMP - given recent salt load, low K and elevated BP, we will order plasma renin and aldosterone levels HTN - BP as high as 190/109 in ED - "reactive hypertension" listed on patient's problem list, however most recent note from PCP in 07/2020 indicates no pharmacotherapy - increase in 2nd troponin level could be suggestive of end organ damage (hypertensive emergency) tricuspid regurgitation - history of - per patient: discovered on 2017 echo (cannot locate records) Dispo: Med/Surg with tele. plan was dispo 09/30/20, but patient stayed after cath recovery Diet: NPO prior to cath, resumed normal diet after DVT ppx: SCDs Code: Full (2) Acute hypokalemia: (3) Hypertension: (4) Tricuspid regurgitation: Admission and Anticipated Discharge Date Admission Date: September 30, 2020 Subjective No symptoms. Slept well. Eating and urinating ok. No cp, sob, or palpitations. No dizziness or visual change. No RUQ pain. Review of Systems Review of Systems: Constitutional: Denies fever, chills Eyes: Denies blurry vision, vision changes Cardiovascular: Denies chest pain, palpitations Respiratory: Denies shortness of breath Gastrointestinal: Denies abdominal pain, nausea, vomiting, constipation, diarrhea Genitourinary: Denies urinary symptoms, dysuria, hematuria Musculoskeletal: Denies weakness, muscle aches/pain, joint aches/pain Neurological: Denies headache, numbness, tingling, focal weakness Physical Exam Physical Exam: General: Grossly A&O. NAD. Cooperative. HEENT: Atraumatic, normocephalic. Pulm: CTAB. -wheezes, -rales, -rhonchi. No respiratory distress. Cardiac: RRR, -mrg. Abdominal: Nontender, nondistended, soft. Results & Data Results & Data ([facility]) Vital Signs (Past 12 Hours) Vital Signs Temp Pulse Resp BP Pulse Ox 10/01/20 07:02 36.8 C 58 L 19 125/82 98 10/01/20 04:08 36.6 C 59 L 18 138/78 97 09/30/20 23:13 36.5 C 69 16 123/74 96 09/30/20 21:03 70 17 133/86 96 09/30/20 20:00 78 16 144/83 H 95 (1) Chest pain Chest pain type: unspecified Qualified Code(s): R07.9 - Chest pain, uns pecified (2) Hypertension Hypertension type: unspecified Qualified Code(s): I10 - Essential (primary) hypertension
[2020-10-01] MEDS: lisinopril 5 MG TAB PO SCH (08:29)
--- NOTE | 2020-10-01 13:52 | Billing Data ---
Date of Service September 30, 2020 Coding Level of Care Code 57213 Subseq Obs Care Lvl 3
--- NOTE | 2020-10-01 13:52 | Billing Data ---
Date of Service October 01, 2020 Coding Level of Care Code 86449 OBS Care - Discharge Comment obs dc 10/01 not 09/30
[2020-10-05 01:46] LABS: Renin Activity 0.29 ng/mL/h (0.25-5.82)
== END 2020-10-01 10:50 | disposition home or self-care (01) ==
LOC: 2W 01:35 → ED 01:35 → SUATTDRO 04:36 → 2W 05:14 → 2S 17:22
DX: I10 Essential (primary) hypertension; Z82.49 Family history of ischemic heart disease and other diseases of the circulatory system; R07.9 Chest pain, unspecified; Z79.899 Other long term (current) drug therapy; I07.1 Rheumatic tricuspid insufficiency; R25.1 Tremor, unspecified; Z85.828 Personal history of other malignant neoplasm of skin; R79.89 Other specified abnormal findings of blood chemistry; I25.110 Atherosclerotic heart disease of native coronary artery with unstable angina pectoris; E87.6 Hypokalemia

== ENCOUNTER 2021-02-24 08:02 | Observation (INO) ==
--- NOTE | 2021-02-23 14:19 | Anesthesiology Consultation ---
Date of Service February 23, 2021 Assessment & Plan (1) Encounter for pre-operative examination: - COVID screening: Per assessment on 02/23: Travel screen negative, no known COVID-19 positive contacts or current COVID-19 related symptoms. Patient late add-on for fracture repair. Will order cepheid for AM DOS. - Labs: Most recent labs from 09/2020 were unremarkable but out of date. Will update CBC, BMP, coags AM DOS. - Letter of medical necessity: "Patient was seen in office on 02/23/2021, patient surgery is scheduled for 02/24/2021 at [facility].There is not enough time for patient to do a send out Covid19 test.Patient will require a rapid COVID19 swab for surgery. Patient surgery cannot wait per physician administrative assistant receptionist and physician." Patient scheduled for right knee ORIF lateral tibial plateau fracture Chart Review Chart Review: Acceptable Risk for Surgery (pending evaluation/labs AM DOS) and Patient NOT seen in Pre Admission Testing History Surgery Operation Date: 02/24/21 09:55 Proposed Procedures p Right Knee Open Reduction Internal Fixation Lateral Tibial Plateau Fracture - Shailesh Gilmore, Height/Weight Height: 5 ft 5 in Weight: 56.669 kg Allergies Allergy/AdvReac Type Severity Reaction Status Date / Time No Known Allergies Allergy Verified 02/23/21 14:48 Medications Home Medications Medication Instructions Recorded Confirmed Last Taken acetaminophen 500 mg PO Q6H PRN 02/23/21 02/23/21 Unknown Past Medical History Medical History Chronic obstructive pulmonary disease Suspected COPD per 12/28/20 PCP office visit Fracture of right tibial plateau Hx of basal cell carcinoma Hypertension Per pt, controlled at home when not at doctors' offices Migraine Tremor Very fine head tremor, PCP monitoring > resolved per patient Vertigo Past Family History Family History Father Coronary heart disease Hyperlipidemia Myocardial infarction Hypertension Brother Diabetes Family history of diabetes mellitus Mother Myocardial infarction Other No family history of adverse response to anesthesia Denies family history of Ovarian cancer Prostate cancer Breast cancer Colorectal cancer Past Surgical History Surgical History H/O lumbar discectomy History of basal cell carcinoma (BCC) excision History of cardiac cath 09/2020 > no stents [place] teeth removed Social History Smoking Status: Never smoker Hx Alcohol Use: No Hx Substance Use: No substance use type: does not use Testing Laboratory Results 09/30/20 WBC 6.74 H/H 13.2/39.5 PLATELETS 351 SODIUM 142 POTASSIUM 3.2 CHLORIDE 111 CO2 28 BUN 10 CREATININE 0.66 GLUCOSE 91 PT 11.1 PTT 28.2 INR 1.0 HGBA1C 5.5% Electrocardiogram Date: 09/30/20 Normal sinus rhythm at [address] abnormality. Chest X-Ray Date: 09/30/20 FINDINGS: The cardiac and mediastinal contours are normal. There is no evidence of focal pulmonary consolidation. There is no evidence of failure. No pleural effusions are visualized. There is a 3 mm calcified granuloma the left lung base. IMPRESSION: No active disease in the chest. Echocardiogram Date: 09/30/20 EF 70%. No regional wall motion abnormalities. No significant valvular disease. RVSP 33 mmHg. Cardiac Catheterization Date: 09/30/20 No significant CAD. Codominant system. Low left-sided filling pressure. No aortic stenosis. Chest pain and elevated troponin may have been secondary to hypertensive urgency.
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
[~2021-02-24 08:02] MED LIST: ceFAZolin 1000MG 1,000 MG/7.5 ML SYR IV SCH
[2021-02-24 08:42] LABS: Basophils # (auto) 0.01 K/uL (0-0.2); Basophils % (auto) 0.1 %; Eosinophils # (auto) 0.06 K/uL (0-0.5); Eosinophils % (auto) 0.7 %; Hematocrit (blood only) 39.4 % (37-47); Immature Granulocytes # (auto) 0.01 K/uL (0.00-0.02); Immature Granulocytes % (auto) 0.1 %; Lymphocytes # (auto) 1.26 K/uL (1.2-3.4); Lymphocytes % (auto) 14.6 %; Mean Corpuscular Hemoglobin 29.5 pg (25-34); Mean Corpuscular Volume 89.3 fL (80-100); Mean Platelet Volume 10.1 fL (7.4-10.4); Monocytes # (auto) 0.79 K/uL (0.11-0.59); Monocytes % (auto) 9.2 %; Neutrophils # (auto) 6.49 K/uL (1.4-6.5); Neutrophils % (auto) 75.3 %; Platelet Count 287 K/uL (130-400); RDW Coefficient of Variation 13.1 % (11.5-14.5); RDW Standard Deviation 42.7 fL (36.4-46.3); Red Blood Count 4.41 M/uL (4.2-5.4); White Blood Count 8.62 K/uL (4.8-10.8)
[2021-02-24 08:48] LABS: Partial Thromboplastin Ratio 0.9; Partial Thromboplastin Time 24.3 Seconds (21.0-31.0); Prothrombin Time 10.5 Seconds (9.0-12.0)
[2021-02-24 09:04] LABS: BUN Creatinine Ratio 19.4 (10-20); Creatinine Clr Calc Pharmacy 78.9 ml/min; Est GFR (African American) 108.5 ml/min; Est GFR (Non-African American) 93.7 ml/min; Potassium 3.6 mmol/L (3.5-5.1)
[2021-02-24] MEDS ORDERED: PROPOFOL IV EMULSION 10 MG/ML 20 ML VIAL IV ONE (10:31)
[2021-02-24] MEDS ORDERED: MIDAZOLAM HCL 1 MG/ML 2ML VIAL ONE (10:31)
[2021-02-24] MEDS ORDERED: fentaNYL citrate 100 MCG/2 ML VIAL ONE ×2 (10:31→12:21)
[2021-02-24] MEDS ORDERED: LIDOCAINE 2% 2 ML VIAL/AMP(20MG/ML) INFIL ONE (10:31)
--- NOTE | 2021-02-24 10:42 | History & Physical Bridge Note ---
Date of Service February 24, 2021 History & Physical Bridge Note I have examined the patient, reviewed the History & Physical and in the interval since the performance of the History & Physical I have noted the following changes of clinical significance: no changes noted
[2021-02-24] MEDS ORDERED: DEXAMETHASONE SOD INJ 4 MG/ML VIAL ONE ×2 (10:51→10:58)
[2021-02-24] MEDS ORDERED: ONDANSETRON INJ 2 MG/ML 2 ML VIAL ONE (10:51)
[2021-02-24] MEDS ORDERED: BUPIVACAINE 0.5 % 5 MG/1 ML MPF 30ML VIAL ONE (10:58)
[2021-02-24] MEDS ORDERED: EPINEPHrine INJ 1 MG/ML AMP ONE (10:59)
[2021-02-24] MEDS ORDERED: ePHEDrine sulfate 50 MG/ML AMP IV PRN (11:00)
[2021-02-24] MEDS ORDERED: ONDANSETRON INJ 2 MG/ML 2 ML VIAL IV PRN ×3 (11:00→16:58)
[2021-02-24] MEDS ORDERED: ATROPINE SULFATE 0.1 MG/ML 10ML SYR IV PRN (11:00)
[2021-02-24] MEDS ORDERED: PROMETHAZINE HCL 6.25 MG in SODIUM CHLORIDE 0.9% 50 ML IV PRN (11:00)
[2021-02-24] MEDS ORDERED: MoRPHine SULFATE 2 MG/ML CARP IV PRN (11:50)
[2021-02-24] MEDS ORDERED: oxyCODONE/ACETAMINOPHEN 5mg/325mg TAB PO PRN ×2 (11:50)
[2021-02-24] MEDS ORDERED: ePHEDrine sulfate 50 MG/ML SYR ONE (13:35)
--- NOTE | 2021-02-24 14:02 | Fluoroscopy Report ---
FL knee RT 1 or 2V CLINICAL HISTORY: RT ORIF TIBIAL PLATEAU FX COMPARISON STUDY: None. FLUOROSCOPY TIME: 3 minutes and 19 seconds. FINDINGS: 3 fluoroscopic spot images of the right knee demonstrate a lateral cortical plate and screw s transfixing the proximal tibial fracture. The hardware appears intact. Alignment is near-anatomic. IMPRESSION: Fluoroscopy provided for internal fixation of a right tibial plateau fracture. ACT 112: Negative or not required by law. Electronically signed by: Salvador Bay M.D. 02/24/2021 2:00 PM
--- NOTE | 2021-02-24 14:15 | Post Operative Brief Note ---
Immediate Post Op Note v1 Date of Surgery February 24, 2021 Pre & Post Diagnosis Operation Date: 02/24/21 09:55 Pre-Op Diagnosis: Right Knee displaced intra-articular lateral Tibial Plateau Fracture (Schatzker type II) Post-Op Diagnosis: Right Knee displaced intra-articular lateral Tibial Plateau Fracture (Schatzker type II), hemarthrosis right knee I identified the patient and participated in the time-out.: Yes Procedure Operation Date: 02/24/21 09:55 Actual Procedures p Right Knee Open Reduction Internal Fixation displaced intra-articular lateral Tibial Plateau Fracture (Schatzker type II), Arthrotomy of Right Knee Joint, Evacuation of Hematoma right knee joint (Right) - Shailesh Gilmore DO Surgeon Shailesh Gilmore DO Tattoo Identifier Leonardo Yee PA-C Estimated Blood Loss 10 Findings Consistent with Post-Op Diagnosis Specimens None Anesthesia Type General Regional Complications none Disposition Accompanied Patient To Recovery: No Disposition: Recovery Room
[2021-02-24] MEDS: fentaNYL citrate 100 MCG/2 ML VIAL IV PRN ×2 (14:31→14:38)
--- NOTE | 2021-02-24 14:44 | XRay Report ---
XR knee RT 1 or 2V routine CLINICAL HISTORY: Postop. Right knee internal fixation. COMPARISON STUDY: 02/24/2021. FINDINGS: Lateral cortical plate transfixed with screws at the proximal tibia. The hardware appears i ntact. Near anatomic alignment at the tibial plateau fracture. Mild chondrocalcinosis is noted within the right knee. External brace is in position. IMPRESSION: Status post internal fixation of a right tibial plateau fracture. The hardware appears i ntact. ACT 112: Negative or not required by law. Electronically signed by: Salvador Bay M.D. 02/24/2021 2:43 PM
[2021-02-24] MEDS: HYDROmorphone INJ 2 MG/ML SYR/VIAL IV PRN ×4 (14:45→15:02)
--- NOTE | 2021-02-24 15:13 | Anesthesiology Progress Note ---
Date of Service February 24, 2021 Anesthesia Post Procedure Vital Signs Vital Signs: Temp Pulse Pulse Resp BP Pulse Ox 02/24/21 15:05 78 18 136/74 100 02/24/21 14:55 76 17 138/70 95 02/24/21 14:45 80 14 134/90 97 02/24/21 14:35 72 19 143/77 H 100 02/24/21 14:25 79 16 142/75 H 100 02/24/21 14:18 36.4 C L 75 13 106/72 100 02/24/21 08:41 36.9 C 57 L 18 139/95 97 Pain Intensity Right Knee: Pain Intensity: 7 Transfer of Care Handoff Completed per policy Notes Mental Status: alert / awake / arousable Patient Amnestic to Procedure: Yes Nausea / Vomiting: adequately controlled Pain: adequately controlled Airway Patency, RR, SpO2: stable & adequate BP & HR: stable & adequate Hydration State: stable & adequate Anesthetic Complications: no major complications apparent
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
[2021-02-24] MEDS ORDERED: ALUMINUM/MAGNESIUM SUSP 30 ML UDC PO PRN (16:58)
[2021-02-24] MEDS ORDERED: METOCLOPRAMIDE HCL INJ 5 MG/ML 2 ML VIAL IV PRN (16:58)
[2021-02-24] MEDS ORDERED: bisacodyL 10 MG SUPP PR PRN (16:58)
[2021-02-24] MEDS ORDERED: NALOXONE HCL 0.4 MG/1 ML VIAL/CARP IV PRN (16:58)
[2021-02-24] MEDS ORDERED: SODIUM CHLORIDE 0.9% 1000ML 1,000 ML IV SCH (16:58)
[2021-02-24] MEDS ORDERED: oxyCODONE HCL IR 5 MG TAB (IMMEDIATE RELEASE) PO PRN (16:58)
[2021-02-24] MEDS ORDERED: NO NSAIDS SCH (16:58)
[2021-02-24] MEDS ORDERED: MAGNESIUM HYDROXIDE SUSP 30 ML UDC PO PRN (16:58)
[2021-02-24] MEDS ORDERED: HYDROmorphone INJ 0.5 MG/0.5 ML SYR IV PRN (16:58)
[2021-02-24] MEDS ORDERED: diphenhydrAMINE Capsule 25 MG CAP PO PRN (16:58)
[2021-02-24] MEDS: ceFAZolin 2000MG 2,000 MG/15 ML SYR IV SCH (20:22)
[2021-02-24] MEDS: DOCUSATE SODIUM 100 MG CAP PO SCH (20:23)
[2021-02-24] MEDS: ASPIRIN 81 MG ECTAB PO SCH (20:23)
[2021-02-24] MEDS ORDERED: SENNA 8.6 MG TAB PO SCH (21:00)
[2021-02-24] MEDS: ACETAMINOPHEN 500 MG TAB PO SCH (21:45)
[2021-02-25] MEDS: ceFAZolin 2000MG 2,000 MG/15 ML SYR IV SCH (05:06)
[2021-02-25] MEDS: ACETAMINOPHEN 500 MG TAB PO SCH ×2 (05:07→14:06)
[2021-02-25 07:32] LABS: Hematocrit (blood only) 33.9 % (37-47); Hemoglobin 11.1 g/dL (12.0-16.0); Mean Corpuscular Hemoglobin 29.5 pg (25-34); Mean Corpuscular Hgb Conc 32.7 g/dL (32-36); Mean Corpuscular Volume 90.2 fL (80-100); Platelet Count 268 K/uL (130-400); RDW Coefficient of Variation 13.3 % (11.5-14.5); RDW Standard Deviation 43.4 fL (36.4-46.3); Red Blood Count 3.76 M/uL (4.2-5.4); White Blood Count 9.93 K/uL (4.8-10.8)
[2021-02-25 08:01] LABS: BUN Creatinine Ratio 11.9 (10-20); Calcium 8.7 mg/dl (8.5-10.1); Creatinine Clr Calc Pharmacy 77.6 ml/min; Est GFR (Non-African American) 93.1 ml/min; Potassium 3.8 mmol/L (3.5-5.1)
[2021-02-25] MEDS ORDERED: MULTIVITAMIN TAB PO SCH (09:00)
[2021-02-25] MEDS: ASPIRIN 81 MG ECTAB PO SCH (09:01)
[2021-02-25] MEDS: DOCUSATE SODIUM 100 MG CAP PO SCH (09:01)
--- NOTE | 2021-02-25 09:08 | Orthopedic Progress Note ---
Date of Service February 25, 2021 Assessment & Plan (1) Fracture of right tibial plateau: Right Knee Open Reduction Internal Fixation Lateral Tibial Plateau Fracture, Arthrotomy of Right Knee Joint, Evacuation of Hematoma T scope brace right knee. We discussed being locked in extension over the next 6 weeks. Nonweightbearing right lower extremity all times. Aspirin 81 mg twice daily x4 weeks postop for DVT prophylaxis. Follow-up 2 weeks postop Admission and Anticipated Discharge Date Admission Date: February 24, 2021 Subjective patient resting in bed eating breakfast. No complaints today. Pain is controlled. No CP, SOB, Calf pain, N/V Physical Exam Physical Exam: Toes mobile, NVI. Calves soft, non tender. Dressing in place. Brace in place Results & Data ([facility]) Vital Signs (Past 12 Hours) Vital Signs Temp Pulse Pulse Resp BP BP Pulse Ox 02/25/21 08:00 36.9 C 77 18 114/65 99 02/25/21 05:05 37 C 81 15 119/67 99 02/24/21 22:30 36.9 C 79 16 119/65 96
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
== END 2021-02-25 15:07 | disposition home or self-care (01) ==
LOC: ASU 08:02 → 3E 08:02
DX: S82.121A Displaced fracture of lateral condyle of right tibia, initial encounter for closed fracture; Z20.822 Contact with and (suspected) exposure to COVID-19; W18.09XA Striking against other object with subsequent fall, initial encounter; S80.01XA Contusion of right knee, initial encounter